=== PATIENT | female | born 1995 | race African-American/Black ===

== ENCOUNTER 2017-04-07 16:16 | Emergency (ER) | payer MEDICAID ==
[2017-04-07 19:12] LABS: BASOPHILS 0.2 % (0-2); EOSINOPHILS 6.5 % (0-7); HEMATOCRIT 35.9 % (36.0-48.0); HEMOGLOBIN 12.3 g/dL (12-16); IMMATURE GRANULOCYTES 0.2 % (0-5); MCH 26.1 pg (26.0-34.0); MCHC 34.3 g/dL (31.0-37.0); MCV 76.2 fL (80.0-100.0); MEAN PLATELET VOLUME 10.6 fL (7.4-10.4); MONOCYTES 6.1 % (2-11); RBC 4.71 10x6/uL (4.00-5.40); RDW 14.2 % (11.5-14.5); WBC 6.4 10x3/uL (4.8-10.8)
[2017-04-07 19:14] LABS: PLATELET COUNT 264 10x3/uL (130-400)
[2017-04-07 19:22] LABS: ALKALINE PHOSPHATASE 62 U/L (46-116); ALT (SGPT) 17 U/L (10-68); BILIRUBIN - TOTAL 0.37 mg/dL (0.2-1.3); CALC OSMOLALITY 276 mosm/kg (275-300); CALCIUM 9.3 mg/dL (8.5-10.1); CARBON DIOXIDE 22.9 mmol/L (21.0-32.0); CHLORIDE - SERUM 106 mmol/L (98-107); CREATININE - SERUM 0.8 mg/dL (0.6-1.3); GLUCOSE 89 mg/dL (74-106); POTASSIUM - SERUM 3.8 mmol/L (3.5-5.1); PROTEIN - SERUM 8.1 g/dL (6.4-8.2); SODIUM 140 mmol/L (136-145); UREA NITROGEN 10 mg/dL (7-18); eGFR NON AFRICAN AMERICAN > 90 mL/min (90-120)
== END 2017-04-07 20:35 | disposition home or self-care (01) ==
LOC: D.ER 16:16
PROVIDERS: Physician Assistant Medical
DX: J45.909 Unspecified asthma, uncomplicated (principal)

== ENCOUNTER 2019-12-12 15:35 | Outpatient (CLI) | payer MEDICAID ==
[2019-12-12 18:48] LABS: BILIRUBIN NEGATIVE (NEGATIVE); GLUCOSE NEGATIVE (NEGATIVE); KETONE NEGATIVE (NEGATIVE); NITRITE NEGATIVE (NEGATIVE); UROBILINOGEN NORMAL (NORMAL)
== END 2019-12-12 16:45 | disposition home or self-care (01) ==
LOC: D.LDO 15:35
PROVIDERS: ATTEND Obstetrics & Gynecology
DX: O26.893 Other specified pregnancy related conditions, third trimester (principal); Z3A.32 32 weeks gestation of pregnancy; N85.8 Other specified noninflammatory disorders of uterus

== ENCOUNTER 2019-12-18 03:25 | Outpatient (CLI) | payer MEDICAID ==
[2019-12-18 05:49] LABS: BILIRUBIN NEGATIVE (NEGATIVE); GLUCOSE NEGATIVE (NEGATIVE); KETONE NEGATIVE (NEGATIVE); NITRITE NEGATIVE (NEGATIVE); UROBILINOGEN NORMAL (NORMAL)
== END 2019-12-18 11:44 | disposition home or self-care (01) ==
LOC: D.LDO 03:25
PROVIDERS: ATTEND Obstetrics & Gynecology
DX: O26.893 Other specified pregnancy related conditions, third trimester (principal); Z3A.33 33 weeks gestation of pregnancy; R10.32 Left lower quadrant pain

== ENCOUNTER 2019-12-25 11:57 | Outpatient (CLI) | payer SELFPAY | END 2019-12-25 13:30 | disposition home or self-care (01) | LOC: D.LDO 11:57 | PROVIDERS: ATTEND Obstetrics & Gynecology | DX: O36.8130 Decreased fetal movements, third trimester, not applicable or unspecified (principal); Z3A.34 34 weeks gestation of pregnancy ==

== ENCOUNTER 2019-12-26 15:33 | Outpatient (CLI) | payer SELFPAY | END 2019-12-26 17:06 | disposition home or self-care (01) | LOC: D.LDO 15:33 | PROVIDERS: ATTEND Student in an Organized Health Care Education/Training Program | DX: O36.8130 Decreased fetal movements, third trimester, not applicable or unspecified (principal); Z3A.34 34 weeks gestation of pregnancy ==

== ENCOUNTER 2019-12-31 02:51 | Outpatient (CLI) | payer SELFPAY ==
[2019-12-31 04:17] LABS: BILIRUBIN NEGATIVE (NEGATIVE); GLUCOSE NEGATIVE (NEGATIVE); KETONE MODERATE mg/dL (NEGATIVE); NITRITE NEGATIVE (NEGATIVE); UROBILINOGEN NORMAL (NORMAL)
[2019-12-31 04:18] LABS: UDS - AMPHET NEGATIVE QUAL (NEGATIVE); UDS - BARB NEGATIVE QUAL (NEGATIVE); UDS - BENZO NEGATIVE QUAL (NEGATIVE); UDS - COCAINE NEGATIVE QUAL (NEGATIVE); UDS - OPIATE NEGATIVE QUAL (NEGATIVE); UDS - PCP NEGATIVE QUAL (NEGATIVE); UDS - THC NEGATIVE QUAL (NEGATIVE)
[2019-12-31 04:19] LABS: AMORPHOUS SEDIMENT <1+ /lpf (NONE SEEN); BACTERIA FEW /hpf (NEGATIVE); EPITHELIAL CELLS 0-5 /hpf (0-5); RED CELLS - URINE 0-5 /hpf (0-5); WHITE CELLS - URINE 0-5 /hpf (NEGATIVE)
== END 2019-12-31 10:44 | disposition home or self-care (01) ==
LOC: D.LDO 02:51
PROVIDERS: ATTEND Student in an Organized Health Care Education/Training Program
DX: O26.893 Other specified pregnancy related conditions, third trimester (principal); Z3A.35 35 weeks gestation of pregnancy; N93.9 Abnormal uterine and vaginal bleeding, unspecified; R10.9 Unspecified abdominal pain; R11.2 Nausea with vomiting, unspecified; R07.89 Other chest pain

== ENCOUNTER 2020-01-03 12:00 | Outpatient (CLI) | payer SELFPAY | END 2020-01-03 12:49 | disposition home or self-care (01) | LOC: D.LDO 12:00 | PROVIDERS: ATTEND Student in an Organized Health Care Education/Training Program | DX: O35.9XX0 Maternal care for (suspected) fetal abnormality and damage, unspecified, not applicable or unspecified (principal) ==

== ENCOUNTER 2020-01-08 10:54 | Outpatient (CLI) | payer SELFPAY ==
[2020-01-08 13:12] LABS: BILIRUBIN NEGATIVE (NEGATIVE); GLUCOSE NEGATIVE (NEGATIVE); KETONE LARGE mg/dL (NEGATIVE); NITRITE NEGATIVE (NEGATIVE); UROBILINOGEN 8 mg/dL (NORMAL)
[2020-01-08 13:13] LABS: BACTERIA FEW /hpf (NEGATIVE); EPITHELIAL CELLS OCC /hpf (0-5); RED CELLS - URINE RARE /hpf (0-5); WHITE CELLS - URINE NSEEN /hpf (NEGATIVE)
== END 2020-01-08 12:45 | disposition home or self-care (01) ==
LOC: D.LDO 10:54
PROVIDERS: Student in an Organized Health Care Education/Training Program; ATTEND Obstetrics & Gynecology
DX: O26.893 Other specified pregnancy related conditions, third trimester (principal); Z3A.36 36 weeks gestation of pregnancy; R10.2 Pelvic and perineal pain

== ENCOUNTER 2020-01-11 07:16 | Outpatient (CLI) | payer SELFPAY | END 2020-01-11 08:40 | disposition home or self-care (01) | LOC: D.LDO 07:16 | PROVIDERS: ATTEND Obstetrics & Gynecology | DX: O26.899 Other specified pregnancy related conditions, unspecified trimester (principal); Z3A.00 Weeks of gestation of pregnancy not specified ==

== ENCOUNTER 2020-01-13 19:16 | Outpatient (CLI) | payer SELFPAY | END 2020-01-13 20:50 | disposition home or self-care (01) | LOC: D.LAB 19:16 | PROVIDERS: ATTEND Obstetrics & Gynecology | DX: O24.419 Gestational diabetes mellitus in pregnancy, unspecified control (principal) ==

== ENCOUNTER 2020-01-19 19:09 | Outpatient (CLI) | payer SELFPAY ==
[2020-01-21 20:25] VITALS: BMI 29.1
== END 2020-01-19 21:03 | disposition home or self-care (01) ==
LOC: D.LDO 19:09
PROVIDERS: ATTEND Obstetrics & Gynecology
DX: O24.419 Gestational diabetes mellitus in pregnancy, unspecified control (principal)

== ENCOUNTER 2020-01-21 16:47 | Inpatient (IN) | payer SELFPAY ==
[~2020-01-21] VITALS: Ht 165.1 cm; Wt 79.4 kg
[2020-01-21 18:54] LABS: HEMATOCRIT 25.8 % (36.0-48.0); HEMOGLOBIN 8.1 g/dL (12-16); MCH 20.6 pg (26.0-34.0); MCHC 31.4 g/dL (31.0-37.0); MCV 65.5 fL (80.0-100.0); MEAN PLATELET VOLUME 9.4 fL (7.4-10.4); RBC 3.94 10x6/uL (4.00-5.40); RDW 20.2 % (11.5-14.5); WBC 7.5 10x3/uL (4.8-10.8)
[2020-01-21 20:25] VITALS: BP 121/66; Ht 165.1 cm; Wt 79.4 kg
--- NOTE | 2020-01-21 22:18 | NUR ---
PT WAS GIVEN 30 TORADOL IV.
--- NOTE | 2020-01-21 22:45 | NUR ---
PT TO ROOM 1220 PER BED FROM RECOVERY FROM . PT HAD A LITTLE BOY. HER SKIN IS WARM AND DRY BUT SHE IS HAVING SHIVERS AND MORE BLANKETS APPLIED. THERE IS A LARGE WHITE DRESSING OVER HER INCISION WITH NO DRAINAGE NOTED. HER BLEEDING IS MOD TO SMALL. SHE HAS A PORTER CATHETER IN PLACE. SHE HAS AN IV IN THE RIGHT FOREARM WITH NS AND PIT INFUSING. HER LEGS ARE STILL ASLEEP FROM THE SPINAL SHE GOT IN SURGERY. SHE IS ALSO BEGINNING TO FEEL INCISIONAL PAIN. HER CALL LIGHT IS WITHIN REACH OF PT HAND.
[2020-01-21 23:00] VITALS: BP 138/78
--- NOTE | 2020-01-22 | NUR ---
PT IS AWAKE, ALERT AND SMILING. NOT REALLY HAVING ANY PAIN AT THIS TIME. IV CONT TO INFUSE. DRESSING STILL DRY AND PORTER DRAINING. FOLLOWING CLOSELY
--- NOTE | 2020-01-22 00:30 | NUR ---
PT IS BEGINNING TO GET HER FEELING BACK IN HER INCISION. ASKED DR. ACOSTA WHAT SHE WANTED PT TO RECEIVE FOR PAIN OTHER THAN TYLENOL. SHE SAID MORPHINE 4 MG IV Q4H. THIS ORDER WAS WRITTEN.
--- NOTE | 2020-01-22 02:23 | NUR ---
PT REQUESTED THE IV PAIN MEDS DUE TO SEVERE CRAMPING AND PAIN. MORPHINS 4 MG GIVEN IV VERY SLOWLY. PT STATES SHE HAS HAD MORPHINE IN THE PAST. AT BEDSIDE.
--- NOTE | 2020-01-22 02:24 | NUR ---
I HAD JUST WALKED OUT OF PT ROOM AFTER GIVING INJECTION OF MS 4 MG AND I HEAR HER TELL HER THAT SHE COULD NOT BREATHE. I WALKED IN TO THE ROOM AND PT WAS INDEED HAVING PROBLEMS. HER STATES THAT HER TONGUE LOOKED LARGER THAN USUAL. I CALLED CHARGE NURSE, TARAH, AND ASKED HER TO COME OVER.
--- NOTE | 2020-01-22 02:25 | NUR ---
CALLED TO ROOM BY LOUIS BATEMAN. PT C/O NOT BEING ABLE TO BREATHE. O2 SAT NOTED TO BE 96%, VS TAKEN. PT WITH EXPIRATORY WHEEZING AND RUBS. INCENTIVE SPIROMETER TEACHING COMPLETED AND IN USE. PT PULLS TO 2000 EACH TIME. PT ABLE TO COUGH AND STATES THAT SHE CAN BREATHE NOW. DR ACOSTA NOTIFIED, NEW ORDERS NOTED FOR BENADRYL 25 MG SLOW IVP NOW.
--- NOTE | 2020-01-22 02:26 | NUR ---
DR ACOSTA IS IN HOUSE AND SHE HAS BEEN ASKED TO SEE PT EDUARD. SHE DID THIS. SHE ORDERED 25 MG OF BENADRYL IV. THIS WAS GIVEN AT 0240. PT STILL HAS AUDIBLE WHEEZED. HER PULSE OX HAS GONE DOWON INTO THE HIGH 80'S. SHE WAS PLACED ON O2 VIA NC AT 2L. PT VITAL SIGNS WERE STABLE THROUGHOUT.
--- NOTE | 2020-01-22 02:40 | NUR ---
DR ACOSTA ORDERED 25 MG OF BENADRYL IV. THIS WAS GIVEN.
--- NOTE | 2020-01-22 03:00 | NUR ---
PT IS AT BEDSIDE. THE PT HAS BEEN DOING HER IS AND CAN PULL UP TO 1999. IT HURTS HER TO DO AND SHE HATES COUGHTING BUT SHE HAS A PILLOW TO SPLINT HER INCISION. SHE IS GOOD TO FOLLOW DIRECTIONS. HER WILL REMAIN IN HER ROOM TOO WATCH HER AND GET HER TO DEEP BREATHE. PT TELLS ME THAT SHE HAS HAD ASTHMA FOR YEARS BUT DOES NOT TAKE ANY INHALERS AT HOME. PT IS REALLY SLEEPY BUT IS HELPING HER STAY AWAKE.
--- NOTE | 2020-01-22 04:00 | NUR ---
PT IS STILL DOING WELL. DOING HER IS AND DEEP BREATHING. HER LUNGS SOUND CLEAR AT THIS TIME.
--- NOTE | 2020-01-22 04:15 | NUR ---
PT LEFT TO GO HOME. PT IS IN HER ROOM RESTING WITH THE DOOR HALF WAY OPEN FOR ME TO WATCH.
[2020-01-22 04:56] VITALS: BP 133/76
--- NOTE | 2020-01-22 05:38 | NUR ---
tORADOL GIVEN IV 30 MG
--- NOTE | 2020-01-22 05:45 | NUR ---
PT IS RESTING QUIETLY. NO C/O OR NEEDS AT THIS TIME
--- NOTE | 2020-01-22 05:50 | NUR ---
IN PT ROOM TO CLEAN HER UP FROM THE NIGHT. PADS WERE CHANGED OUT THAT COVERED THE BLOOD ON THE FITTED SHEET. SHE STATES SHE CANNOT TURN FROM SIDE TO SIDE TO ASSIST ME IN CHANGING THE ENTIRE BED. SHE WAS WASHED OFF WITH HIBICLENS. NO CLOTS NOTED. PORTER CARE WAS DONE AT THIS TIME. NEW LINENS WERE PLACED. PT FEELS MORE REFRESHED NOW.
--- NOTE | 2020-01-22 06:00 | NUR ---
BLOOD SUGAR 82. DONE PER ORDER OF DR. DAVE PORTER EMPTIED WITH 700 ML INTAKE FROM IV'S 2053.86ML. PT ONLY HAD SOME ICE CHIPS DURING THE NIGHT
[2020-01-22 06:32] LABS: BASOPHILS 0.1 % (0-2); EOSINOPHILS 0.2 % (0-7); HEMATOCRIT 26.8 % (36.0-48.0); HEMOGLOBIN 8.6 g/dL (12-16); IMMATURE GRANULOCYTES 0.1 % (0-5); LYMPHOCYTES 10.3 % (15-50); MCH 21.3 pg (26.0-34.0); MCHC 32.1 g/dL (31.0-37.0); MCV 66.5 fL (80.0-100.0); MEAN PLATELET VOLUME 9.7 fL (7.4-10.4); MONOCYTES 7.5 % (2-11); NEUTROPHILS 81.8 % (40-80); PLATELET COUNT 278 10x3/uL (130-400); RBC 4.03 10x6/uL (4.00-5.40); RDW 21.6 % (11.5-14.5); WBC 10.3 10x3/uL (4.8-10.8)
--- NOTE | 2020-01-22 06:45 | NUR ---
REPORT RECEIVED FROM Clemente ARRIAGA RN.
[2020-01-22 07:40] VITALS: BP 105/76
--- NOTE | 2020-01-22 07:40 | NUR ---
TO ROOM FOR ASSESSMENT. PT. AWAKE, ALERT AND ORIENTED X3. ASSISTED TO REPOSITION IN BED. O2 REMOVED. ASSESSMENT COMPLETED. SEE FLOWSHEET. IV IN RIGHT FOREARE SALINE LOCKED. IV IN LEFT HAND CONTINUES TO INFUSE AT 125CC/HR VIA IVP. FUNDUS IS FIRM 1 BELOW THE UMBILICUS; LOCHIA IS SMALL TO SCANT AND RUBRA. ABDOMENAL DRESSING INTACT WITHOUT DRAINAGE NOTED. PORTER DRAINING LIGHT ORANGE FLUID TO GRAVITY.
--- NOTE | 2020-01-22 09:05 | NUR ---
DR. HAMMER HERE TO SEE PT. ORDERS RECEIVED.
--- NOTE | 2020-01-22 09:40 | NUR ---
175CC CONCENTRATED URINE EMPTIED FROM CATHETER BAG. PORTER D/C'D. IV IN LEFT HAND SALINE LOCKED. PO PAIN MED GIVEN. PT AWAKE AND ALERT WITHOUT SIGNS OF RESPIRATORY DISTRESS. BABY AT BEDSIDE IN OPEN CRIB. NO OTHER NEEDS VOICED AT THIS TIME.
--- NOTE | 2020-01-22 11:16 | NUR ---
PT UP TO SHOWER. VOIDED 200CC LIGHT YELLOW URINE WITHOUT DIFFICULTY. LINENS CHANGED.
--- NOTE | 2020-01-22 12:07 | NUR ---
PT BACK IN BED. PT REMOVED DRESSING IN SHOWER. INCISION IS CDI WITH DERMABOND. NO NEEDS OR CONCERNS VOICED AT THIS TIME.
--- NOTE | 2020-01-22 13:30 | NUR ---
ROUNDS MADE. PT SLEEPING. ASLEEP IN OPEN CRIB AT BEDSIDE.
[2020-01-22 15:35] VITALS: BP 120/77
--- NOTE | 2020-01-22 15:55 | NUR ---
PT UP TO AMBULATE IN HALLWAY.
--- NOTE | 2020-01-22 16:00 | NUR ---
RECEIVED PT FROM PACU FOLLOWING . IV OF LR WITH PITOCIN INFUSING TO MIDLINE IV IN RIGHT UPPER ARM. IV PLACED TO IVP INFUSING AT 125CC/HR. PT GROGGY, BUT AWAKE AND ORIENTED X3. PORTER CATHETER DRAINING LIGHT YELLOW URINE TO GRAVITY. FUNDUS FIRM 2 BELOW THE UMBILICUS. LOCHIA SMALL/RUBRA. MALE VISITOR AT BEDSIDE. NO C/O PAIN AT THIS TIME.
--- NOTE | 2020-01-22 16:25 | NUR ---
PT RETURNED TO ROOM VIA WHEELCHAIR BY NURSERY STAFF. PT WALKED TO NURSERY BUT FELT UNALBE TO WALK BACK TO ROOM. ASSISTED INTO BED. PAIN MEDS GIVEN.
--- NOTE | 2020-01-22 19:15 | NUR ---
REPORT FROM LOUIS HIDALGO
[2020-01-22 20:00] VITALS: BP 108/78
--- NOTE | 2020-01-22 20:15 | NUR ---
PT ASSESSMENT COMPLETED. SHE IS UP AD YOLANDA IN HER ROOM. LOCHIA IS LIGHT. FUNDUS FIRM. HEART SOUNDS NORMAL AND LUNGS CLEAR. BOWEL SOUNDS FAINTLY HEARD. PT IS ON A REGULAR DIET. SKIN WARM AND DRY. SHE HAS SALINE LOCKS IN BOTH ARMS. PT C/O OF SOME DISCOMFORT IN HER INCISION AREA. THE DRESSING IS OFF NOW AND A PERIPAD IS COVERING THE SITE. NO DRAINAGE NOTED. DAD AND BABY IN ROOM. PT REQUESTED FRESH FRUIT AND SOME JUICE. GAVE DAD A SANDWICH TRAY AND HE SHARED THE ORANGES. NO OTHER NEEDS AT THIS TIME.
--- NOTE | 2020-01-22 20:51 | NUR ---
NEURONTIN GIVEN FOR PAIN PER DR. SUMMERS.
--- NOTE | 2020-01-22 22:03 | NUR ---
PT IS RESTING WELL IN BED. NO C/O OR NEEDS AT THIS TIME
--- NOTE | 2020-01-22 22:40 | NUR ---
IV TORADOL GIVEN. PT RATES HER PAIN AT A 9.
[2020-01-23] VITALS: BP 121/83
--- NOTE | 2020-01-23 | NUR ---
PT IS RESTING WITH HER EYES CLOSED. PT IS TENDING TO THE BABY. NO C/O AT THIS TIME
--- NOTE | 2020-01-23 03:04 | NUR ---
PT STATED SHE WAS HUNGRY WHILE SHE WAS UP. SHE IS EATING A HAMBURGER, CHIPS AND BANANA PUDDING THAT WERE LEFT OVERS FROM TONIGHT. SHE STATES SHE IS GOING TO CALL FOR HER BABY AFTER THAT TO HOLD HIM.
--- NOTE | 2020-01-23 03:18 | NUR ---
PT CALLED ME TO HER ROOM TO SPLINT HER ABD. WHILE SHE COUGHED. SHE COULDN'T GET ANYTHING UP SO SHE USED HER IS. SHE COUGHED UP SMALL AMT OF CLEAR SPUTUM SHE SOUNDED A LITTLE WHEEZY. HER PULSE OX IS 97%. SHE IS NOT SHORT OF BREATH AT ALL NOW.
[2020-01-23 04:00] VITALS: BP 120/78
--- NOTE | 2020-01-23 04:00 | NUR ---
PT HAS BEEN SITTING UP IN HER BED USING HER IS TO COUGH UP THE CLEAR SPUTUM SHE HAS. SHE WAS UNABLE TO KEEP HER BABY IN THE ROOM FROM COUGHING. PT IS HAVING NO C/O EXCEPT FOR HER COUGHING AT THIS TIME. SHE IS SPLINTING HER INCISION WITH HER HAND AND PILLOW. VS TAKEN. PT IS UP AD YOLANDA IN HER ROOM. NO NEW C/O OR NEEDS AT THIS TIME
--- NOTE | 2020-01-23 04:55 | NUR ---
PT REQUESTED TORADOL IV. THIS WAS GIVEN.
[2020-01-23 06:11] LABS: RAPID PLASMA REAGIN Non Reactive (Non Reactive)
--- NOTE | 2020-01-23 06:21 | NUR ---
PT IS IN HER ROOM WITH HER BABY. NO C/O OR NEEDS AT THIS TIME
--- NOTE | 2020-01-23 07:00 | NUR ---
REPORT RECEIVED FROM Clemente ARRIAGA RN.
[2020-01-23 08:30] VITALS: BP 123/78
--- NOTE | 2020-01-23 09:12 | NUR ---
DR. ACOSTA HERE FOR ROUNDS. ORDERS RECEIVED.
--- NOTE | 2020-01-23 09:20 | NUR ---
S.L. IN LEFT HAND D/C'D. CATHETER INTACT. BANDAGE APPLIED. ATTEMPTED TO FLUSH S.L. IN RIGHT WRIST; UNABLE TO FLUSH AND SITE IS TENDER. IV D/C'D. CATHETER INTACT. BANDAGE APPLIED. OFFERED SHOWER TO PATIENT. PT STATES SHE WOULD LIKE TO LET PAIN MEDICATION TAKE EFFECT AND SHOWER LATER. NO OTHER NEEDS OR CONCERNS VOICED AT THIS TIME.
--- NOTE | 2020-01-23 12:46 | NUR ---
PT SITTING UP IN BED EATING. NO NEEDS OR CONCERNS AT THIS TIME.
[2020-01-23 13:20] VITALS: BP 124/75
--- NOTE | 2020-01-23 13:20 | NUR ---
PT RESTING IN BED WITH EYES CLOSED. VS TAKEN. NO NEEDS VOICED AT THIS TIME.
--- NOTE | 2020-01-23 14:20 | NUR ---
PT UP TO SHOWER. LINENS CHANGED.
--- NOTE | 2020-01-23 17:44 | NUR ---
TRANSFERRED PT TO ROOM 1257. PT AMBULATED TO ROOM WITHOUT DIFFICULTY.
[2020-01-23 19:20] VITALS: BP 118/70
--- NOTE | 2020-01-23 19:20 | NUR ---
Pt resting in bed, no problems noted on assessment, pt given safety socks for ambulation to the rest room, instruction on ISP given, understanding stated, educated pt on benifits of breast feeding, understanding stated, vss, see assessment, will monitor.
--- NOTE | 2020-01-23 21:30 | NUR ---
RECEIVED REPORT FROM TARAH DOMINGUEZ RN AND NADER ALEMAN RN
--- NOTE | 2020-01-23 22:18 | NUR ---
ROUNDS MADE, PT TALKING ON CELL PHONE, INFANT IN OPEN CRIB CART AT BEDSIDE, PT DENIES NEEDS OR PAIN, DINNER TRAY REMOVED
[2020-01-24 00:19] VITALS: BP 125/81
--- NOTE | 2020-01-24 00:19 | NUR ---
PT UP IN BR, VOIDED WITH NO DIFFICULTY, FLORECITA PANTIES PROVIDED, PT BACK TO BED, VS OBTAINED, PT C/O INC PAIN, INFORMED PT THAT I WILL ADM PAIN MED WHEN DUE, PT VERBALIZES UNDERSTANDING, DENIES FURTHER NEEDS
--- NOTE | 2020-01-24 01:20 | NUR ---
INFORMED PT THAT SHE DOES NOT HAVE PAIN MEDICINE ORDERED, AND ASKED HER IF SHE WAS ALLERGIC TO ANYTHING, PT REPORTS HAVING A REACTION TO THE MORPHINE
--- NOTE | 2020-01-24 01:29 | NUR ---
LOUIS REEVES WAS SPEAKING TO DR TOLBERT AT THIS TIME, SHE INFORMED DR TOLBERT THAT PT DID NOT HAVE ANY PAIN MED ORDERED, SHE RECEIVED ORDERS FOR PAIN MED, SEE ORDERS
--- NOTE | 2020-01-24 01:43 | NUR ---
PT TELEVISION DIRECTOR LIGHT, REPORTS HER REMOTE IS NOT WORKING, THIS RN TO ROOM, PT STATES "I'M SO SILLY, I WAS PUSHING THIS CALL LIGHT WHEN I REMEMBERED THAT I HAVE A REMOTE FOR THE TV", PT DENIES FURTHER NEEDS, FOB TO ROOM AT THIS TIME
[2020-01-24 03:17] VITALS: BP 130/83
--- NOTE | 2020-01-24 03:17 | NUR ---
PT AWAKE, FOB HOLDING , PT C/I INC PAIN AND CRMAPING, OFFERED PERCOCET TO PT, PT WAS GOING TO TAKE IT, BUT THEN CHANGED HER MIND, ADM CINTHYA PO PER MD ORDERS, SEE EMAR, VS OBTAINED, PT DENIES FURTHER NEEDS
--- NOTE | 2020-01-24 04:26 | NUR ---
PT RESTING WITH EYES CLOSED, RESP QUIET, NO DISTRESS NOTED, LEFT UNDISTURBED AT THIS THIS, SLEEPING IN OPEN CRIB CART AT BEDSIDE
--- NOTE | 2020-01-24 06:00 | NUR ---
ROOM CHECK DONE, PT RESTING PLAYING ON CELL PHONE, IN OPEN CRIB CART AT BEDSIDE, FLORECITA PANTIES PROVIDED TO PT PER NADER ALEMAN RN
--- NOTE | 2020-01-24 07:00 | NUR ---
SHIFT REPORT TO DAY SHIFT
--- NOTE | 2020-01-24 08:15 | NUR ---
ASSESSMENT COMPLETE. VERBAL RESPONSES APPRO TO QUESTIONS. STATES IS PASSING GAS AND VOIDING WITHOUT PROBLEMS. REQUESTING TO SHOWER BEFORE DISCHARGE.
[2020-01-24 08:17] VITALS: BP 128/83
--- NOTE | 2020-01-24 08:28 | NUR ---
DR ACOSTA HERE TO SEE PT- DISCHARGE INST GIVEN.
[2020-01-24] MEDS ORDERED: GABAPENTIN100 MG PO (09:41)
[2020-01-24] MEDS ORDERED: IBUPROFEN600 MG PO (09:42)
--- NOTE | 2020-01-24 09:45 | NUR ---
PT OUT OF SHOWER- TOLERATED WELL.
--- NOTE | 2020-01-24 10:07 | NUR ---
DISCHARGE INST VERBAL AND WRITTEN GIVEN. PFW POST AND POST OP INST GIVEN. SCRIPTS X2 GIVEN- GABAPENTIN AND IBUPROFEN ALONG WITH PT MED REC AND DRUG DATA SHEETS. SEE ALSO SIGNED INST FORM FOR INSTRUCTION GIVEN. AWHOON GUIDELINES GIVEN. DENIES ANY QUESTIONS.
--- NOTE | 2020-01-24 10:21 | NUR ---
PT STATES SHE WOULD LIKE PAIN MEDICATION BEFORE DISCHARGE. MED GIVEN.
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
== END 2020-01-24 12:30 | disposition home or self-care (01) | DRG 785 ==
LOC: D.LDO 16:47 → D.WS 17:59 → D.LD 17:59 → D.WS 21:56 → D.LD 01-23 17:44 → D.WS 01-24 11:07
PROVIDERS: ADMIT Student in an Organized Health Care Education/Training Program; ATTEND Student in an Organized Health Care Education/Training Program
PROC: 0UB70ZZ Excision of Bilateral Fallopian Tubes, Open Approach (ICD-10-PCS; 2020-01-21)
PROC: 10D00Z1 Extraction of Products of Conception, Low, Open Approach (ICD-10-PCS; principal; 2020-01-21 20:21)
DX: O99.824 Streptococcus B carrier state complicating childbirth (principal); Z3A.38 38 weeks gestation of pregnancy; Z37.0 Single live birth; Z30.2 Encounter for sterilization; O36.8330 Maternal care for abnormalities of the fetal heart rate or rhythm, third trimester, not applicable or unspecified; O24.429 Gestational diabetes mellitus in childbirth, unspecified control; O99.02 Anemia complicating childbirth; D64.9 Anemia, unspecified